=== PATIENT | male | born 1995 | race Hispanic/Latino ===

== ENCOUNTER 2018-03-05 22:45 | Emergency (ER) | payer SELFPAY | END 2018-03-05 23:32 | disposition home or self-care (01) | LOC: ERS 22:45 | DX: F10.129 Alcohol abuse with intoxication, unspecified (principal) | CPT/HCPCS: 99283 ==

== ENCOUNTER 2019-03-14 22:28 | Emergency (ER) | payer SELFPAY ==
--- NOTE | 2019-03-14 23:14 | CT ---
CT head noncontrast HISTORY: Injury. FINDINGS: There is no evidence of acute intracranial hemorrhage or infarct. The ventricles appear nor mal in size, shape and position. There is no mass effect or shift of midline structures. Visualized paranasal sinuses remain well-aerated. IMPRESSION: Normal exam.
== END 2019-03-14 23:20 ==
LOC: ERS 22:28
DX: Z02.89 Encounter for other administrative examinations (principal); S05.12XA Contusion of eyeball and orbital tissues, left eye, initial encounter; S10.91XA Abrasion of unspecified part of neck, initial encounter; Y04.2XXA Assault by strike against or bumped into by another person, initial encounter
CPT/HCPCS: 36415; 70450